=== PATIENT | male | born 1985 | race Caucasian/White ===

== ENCOUNTER 2016-08-13 20:16 | Emergency (ER) | payer BC ==
[~2016-08-13] VITALS: Ht 170.2 cm; Wt 72.0 kg
[2016-08-13 20:17] VITALS: BP 134/83; PULSE 92; RESP 16; TEMP 98.4; O2SAT 97
--- NOTE | 2016-08-13 20:42 | PD ---
HPI Chief Complaint: Cold / Flu Symptoms Time Seen by Provider: 20:38 Travel History International Travel<30 days: No Contact w/Intl Traveler<30days: No Traveled to known affect area: No History of Present Illness HPI 31-year-old white male presents to the department requesting a shot of steroids. He states that he's been sick now for the past 3 days with subjective fever, sore throat, congestion, cough, general malaise and some loose stool. He states that he started his mother's leftover prescription of amoxicillin yesterday. He has had 2 doses. He is taking 500 mg 2 tablets twice daily.. He has a full prescription. He states that he would like to get a shot of steroids to help decrease his length of illness. He knows that steroids can help. He is here from [place] for a cheer competition. He denies any vomiting. No shortness of breath or wheezing. No abdominal pain or urinary symptoms. PFSH Past Medical History Narrative Medical Deafness Tetanus Vaccination: < 5 Years Past Surgical History Narrative Surgical Left COCHLEAR IMPLANT, tonsillectomy Social History Alcohol Use: No Tobacco Use: No Substance Use: No Allergies-Medications (Allergen,Severity, Reaction): Coded Allergies: Zofran (Verified Allergy, Intermediate, MIGRAINE, 08/13/16) Review of Systems Except as stated in HPI: all other systems reviewed are Neg Physical Exam Narrative GENERAL: Well-developed, well-nourished in no acute distress. Nontoxic appearing. HEAD: Normocephalic, atraumatic. EYES: Pupils equal round and reactive. Extraocular motions intact. No scleral icterus. No injection or drainage. ENT: TMs clear without erythema. The external auditory canals clear on the right side the left is surgically closed. Patient has a left cochlear implant. Nose: clear . Posterior pharynx is pink and moist. No tonsillar edema or exudate. Uvula midline. Airway patent. NECK: Trachea midline.Supple, nontender, moves head freely. No central bony tenderness or spasm. CARDIOVASCULAR: Regular rate and rhythm without murmurs, gallops, or rubs. RESPIRATORY: Clear to auscultation. Breath sounds equal bilaterally. No wheezes , rales, or rhonchi. GASTROINTESTINAL: Abdomen soft, non-tender, nondistended. No hepato-splenomegaly , or palpable masses. No guarding. EXTREMITIES: No clubbing, cyanosis, or edema. No joint tenderness, effusion, or edema noted. BACK: Nontender without deformity or crepitance. No flank tenderness. Data Data Last Documented VS Vital Signs Date Time Temp Pulse Resp B/P Pulse Ox O2 Delivery O2 Flow Rate FiO2 08/13/16 20:17 98.4 92 16 134/83 97 Room Air Orders Dexamethasone Inj (Decadron Inj) (08/13/16 20:45) MDM Medical Decision Making Medical Screen Exam Complete: Yes Emergency Medical Condition: Yes Medical Record Reviewed: Yes Differential Diagnosis MDM: High Differential diagnoses: Strep throat, viral pharyngitis, mono, peritonsillar abscess, retropharyngeal abscess, Ernesto's angina Narrative Course i advised the patient that his symptoms exam is consistent more with a viral upper respiratory tract infection. I have agreed to give him Decadron 10 mg IM. I also advised him to continue his antibiotics to complete because he has not been on them for 2 days. Diagnosis Primary Impression: Acute pharyngitis Patient Instructions: General Instructions Additional Instructions: Rest. Force fluids. Saltwater gargles. Tylenol and Advil. Chloraseptic Tarrs Cepastat lozenge. Amoxicillin to complete. Follow-up with a primary care doctor in one week. Return to the ER if any problems. Med/Other Pt SpecificInfo: No Change to Meds Disposition: 01 DISCHARGE HOME Condition: Stable Ian Worthington Aug 13, 2016 20:42
[2016-08-13] MEDS ORDERED: DEXAMETHASONE SOD PHOS 20 MG/5 ML VIAL IM ONE (20:45)
== END 2016-08-13 21:17 | disposition home or self-care (01) ==
LOC: NEPB 20:16
DX: J02.9 Acute pharyngitis, unspecified (principal); H91.90 Unspecified hearing loss, unspecified ear
CPT/HCPCS: 96372; 99283; J1100